=== PATIENT | female | born 1970 | race Caucasian/White ===

== ENCOUNTER 2017-09-13 14:52 | Observation (INO) ==
--- NOTE | 2017-09-13 15:56 | Emergency Department Note ---
Disposition Clinical Impression: RLQ abdominal pain Acute appendicitis Qualifiers: Acute appendicitis type: unspecified acute appendicitis type Qualified Code(s) : K35.80 - Unspecified acute appendicitis Disposition: Admitted As Inpatient Condition: Good Time of Disposition: 16:57 Abdominal Pain HPI - General Chief Complaint: ED Abdominal Pain Stated Complaint: r/o appy, from Time Seen by Provider: 09/13/17 15:56 Source: patient Mode of arrival: ambulatory Limitations: no limitations Nursing Notes Reviewed: Yes Vital Signs Reviewed: Yes - History of Present Illness HPI Narrative: Patient is a 47-year-old female with past medical history of thyroid disease, currently takes Synthroid. She presents today due to right lower quadrant pain. She states that yesterday, she began developing gradual onset right lower quadrant pain, described as a sharp pain with radiation to her right low back. She does admit to a total hysterectomy including bilateral ovaries. She admits to nausea but denies any vomiting, fevers, constipation. She does admit to a couple loose runny stools without any blood. She was seen at an outside urgent care and had a urinalysis performed that she reports was negative. She was referred here from urgent care due to concern for appendicitis. Denies any other chest pain, shortness of breath, dysuria, hematuria, vaginal bleeding or discharge. Pain Scale: 10 - Related Data Home Medications Medication Instructions Recorded Confirmed Hcg 500u Lulu 500 unit PO DAILY 09/13/17 09/13/17 Progesterone,Micronized 400 mg PO HS 09/13/17 09/13/17 [Progesterone] Testosterone 30mg/ Estradiol 0.25 ml TP DAILY 09/13/17 09/13/17 Thyroid,Pork [Thyroid] 90 mg PO DAILY 09/13/17 09/13/17 Allergies Allergy/AdvReac Type Severity Reaction Status Date / Time No Known Allergies Allergy Verified 09/13/17 17:21 Constitutional: Denies: fever Cardiovascular: Denies: chest pain Respiratory: Denies: cough, dyspnea, wheezes Gastrointestinal: Reports: abdominal pain, nausea, diarrhea. Denies: vomiting, constipation, hematemesis, melena, hematochezia Genitourinary: Denies: urgency, dysuria, frequency, hematuria Neurological: Denies: headache, weakness, numbness Abdominal Pain PMH - Past Medical History Medical history: Reports: other Female Surgical History: Reports: hysterectomy Psychiatric history: Reports: no psych history - Social History Smoking status: Never smoker Alcohol use: Reports: none Drug use: Reports: none Physical Exam - General Limitations: no limitations General appearance: alert - Head Head exam: atraumatic, normocephalic, normal inspection - Eye Eye exam: Present: normal appearance, PERRL, EOMI - ENT ENT exam: normal exam, normal oropharynx, mucous membranes moist - Neck Neck exam: Present: normal inspection, full ROM, trachea midline - Chest Chest inspection: Present: normal inspection, symmetric chest wall rise - Respiratory Respiratory exam: Present: normal lung sounds bilaterally - Cardiovascular Cardiovascular exam: Present: regular rate, normal rhythm, normal heart sounds - Abdominal Exam Abdominal exam: Present: soft, tenderness (RLQ near Mcburney's point), other ( negative obturator, psoas, and heel jar signs). Absent: distention, guarding, rebound, rigidity, Encarnacion's sign, Rovsing's sign - Extremities Exam Extremities exam: Present: normal inspection, full ROM. Absent: tenderness, pedal edema - Neurological Exam Neurological exam: Present: alert, oriented X3 - Psychiatric Psychiatric exam: Present: normal affect, normal mood - Skin Skin exam: Present: warm, dry, intact, normal color Course Course Narrative: Patient blood pressure systolic 109. Patient is mentating well at this time. However, will go ahead and give the patient 1 L normal saline bolus. Otherwise , the rest of the vitals within normal limits. Physical exam shows a patient in no acute distress but she did have right lower quadrant pain near McBurney' s. Negative heel jar, negative obturator and psoas sign. Currently concern for possible appendicitis. We will obtain CT of the abdomen and pelvis, we will give the patient fentanyl and Zofran for pain and nausea control. Also obtain LFTs, CBC, BMP, lipase, urinalysis. 16:54 white blood cell count 11.5. CT scan shows acute uncomplicated appendicitis. We will consult surgery, Dr. Scott. 16:56 spoke with , he states he will come to bedside to see the patient. He has also requested that we start 2 g of Mefoxin. This has been ordered. Patient will be admitted to surgery for further care. Abdomen/Pelvis CT 09/13/17 16:05 IMPRESSION: Acute uncomplicated appendicitis D/ / Fidel Shirley MD / Fidel Shirley MD Interpreting Provider: Fidel Shirley MD Vital Signs Temperature 98.3 F 09/13/17 15:25 Pulse Rate 81 09/13/17 15:25 Respiratory Rate 18 09/13/17 15:25 Blood Pressure 109/74 09/13/17 15:25 O2 Sat by Pulse Oximetry 99 09/13/17 15:25 Temperature 98.3 F 09/13/17 15:25 Pulse Rate 81 09/13/17 15:25 Respiratory Rate 18 09/13/17 18:05 Blood Pressure 124/70 09/13/17 18:05 O2 Sat by Pulse Oximetry 99 09/13/17 15:25 Oxygen Delivery Oxygen Delivery Room Air Abdominal Pain - MDM Narrative Medical decision making narrative: Patient blood pressure systolic 109. Patient is mentating well at this time. However, will go ahead and give the patient 1 L normal saline bolus. Otherwise , the rest of the vitals within normal limits. Physical exam shows a patient in no acute distress but she did have right lower quadrant pain near McBurney' s. Negative heel jar, negative obturator and psoas sign. Currently concern for possible appendicitis. We will obtain CT of the abdomen and pelvis, we will give the patient fentanyl and Zofran for pain and nausea control. Also obtain LFTs, CBC, BMP, lipase, urinalysis. 16:54 white blood cell count 11.5. CT scan shows acute uncomplicated appendicitis. We will consult surgery, Dr. Scott. 16:56 spoke with , he states he will come to bedside to see the patient. He has also requested that we start 2 g of Mefoxin. This has been ordered. Patient will be admitted to surgery for further care. - Medical Records Medical records reviewed: Yes I reviewed the patient's medical records. - Lab Data Lab results reviewed: Yes I reviewed the patient's lab results. Result diagrams: 09/13/17 16:30 09/13/17 16:30 Lab Results 09/13/17 09/13/17 09/13/17 Range/Units 16:10 16:30 16:30 WBC 11.5 H (4.3-11.1) K/mcL RBC 4.63 (3.82-4.97) M/mcL Hgb 14.3 (11.5-15.4) g/dL Hct 42.6 (35.3-44.9) % MCV 92.0 (83.0-100.0) fL MCH 30.9 (28.0-33.3) pg MCHC 33.6 (31.6-35.5) g/dL RDW 12.5 (11.5-14.5) % Plt Count 165 (140-400) K/mcL MPV 11.9 (9.4-12.4) fL Immature Gran % 0.3 (0-4) % Seg Neutrophils % 79.5 % Lymphocytes % 12.7 % Monocytes % 6.3 % Eosinophils % 0.9 % Basophils % 0.3 % Neutrophils # 9.1 H (1.6-8.9) K/mcL Lymphocytes # 1.5 (0.6-4.6) K/mcL Monocytes # 0.7 (0.0-1.3) K/mcL Eosinophils # 0.1 (0.0-0.6) K/mcL Basophils # 0.0 (0.0-0.2) K/mcL PT (9.4-12.1) Seconds INR APTT (26.0-36.0) Seconds Sodium 138 (136-145) mEq/L Potassium 4.0 (3.5-5.1) mEq/L Chloride 107 (98-107) mEq/L Carbon Dioxide 26 (23-29) mEq/L BUN 10 (6-20) mg/dL Creatinine 0.71 (0.60-1.20) mg/dL Est GFR ( Amer) > 60 (> 60) Est GFR (Non-Af Amer) > 60 (> 60) BUN/Creatinine Ratio 14 (6-26) Glucose 98 (70-105) mg/dL Calculated Osmolality 285 (280-300) Calcium 9.3 (8.6-10.3) mg/dL Total Bilirubin 0.4 (0.3-1.0) mg/dL Direct Bilirubin 0.1 (0.0-0.2) mg/dL Indirect Bilirubin 0.3 (0.0-1.2) mg/dL AST 15 (13-39) Units/L ALT 16 (7-52) Units/L Alkaline Phosphatase 63 (34-104) Units/L Serum Total Protein 7.3 (6.4-8.9) g/dL Albumin 4.4 (3.5-5.7) g/dL Globulin 2.9 (2.4-3.5) g/dL Albumin/Globulin Ratio 1.5 (1.1-2.2) Lipase 16 (11-82) Units/L Urine Color Yellow (Yellow) Urine Clarity Clear (Clear) Urine pH 6.5 (5.0-8.0) pH Units Ur Specific [place] 1.014 (1.010-1.025) Urine Protein Negative (Neg-Trace) mg/dL Urine Glucose (UA) Normal (Normal) mg/dL Urine Ketones Negative (Negative) mg/dL Urine Blood Negative (Negative) Urine Nitrite Negative (Negative) Urine Bilirubin Negative (Negative) Urine Urobilinogen Normal (Normal) mg/dL Ur Leukocyte Esterase Negative (Negative) Ur Culture Indicated? NO (NO) 09/13/17 Range/Units 16:30 WBC (4.3-11.1) K/mcL RBC (3.82-4.97) M/mcL Hgb (11.5-15.4) g/dL Hct (35.3-44.9) % MCV (83.0-100.0) fL MCH (28.0-33.3) pg MCHC (31.6-35.5) g/dL RDW (11.5-14.5) % Plt Count (140-400) K/mcL MPV (9.4-12.4) fL Immature Gran % (0-4) % Seg Neutrophils % % Lymphocytes % % Monocytes % % Eosinophils % % Basophils % % Neutrophils # (1.6-8.9) K/mcL Lymphocytes # (0.6-4.6) K/mcL Monocytes # (0.0-1.3) K/mcL Eosinophils # (0.0-0.6) K/mcL Basophils # (0.0-0.2) K/mcL PT 12.3 H (9.4-12.1) Seconds INR 1.1 APTT 33.7 (26.0-36.0) Seconds Sodium (136-145) mEq/L Potassium (3.5-5.1) mEq/L Chloride (98-107) mEq/L Carbon Dioxide (23-29) mEq/L BUN (6-20) mg/dL Creatinine (0.60-1.20) mg/dL Est GFR ( Amer) (> 60) Est GFR (Non-Af Amer) (> 60) BUN/Creatinine Ratio (6-26) Glucose (70-105) mg/dL Calculated Osmolality (280-300) Calcium (8.6-10.3) mg/dL Total Bilirubin (0.3-1.0) mg/dL Direct Bilirubin (0.0-0.2) mg/dL Indirect Bilirubin (0.0-1.2) mg/dL AST (13-39) Units/L ALT (7-52) Units/L Alkaline Phosphatase (34-104) Units/L Serum Total Protein (6.4-8.9) g/dL Albumin (3.5-5.7) g/dL Globulin (2.4-3.5) g/dL Albumin/Globulin Ratio (1.1-2.2) Lipase (11-82) Units/L Urine Color (Yellow) Urine Clarity (Clear) Urine pH (5.0-8.0) pH Units Ur Specific [place] (1.010-1.025) Urine Protein (Neg-Trace) mg/dL Urine Glucose (UA) (Normal) mg/dL Urine Ketones (Negative) mg/dL Urine Blood (Negative) Urine Nitrite (Negative) Urine Bilirubin (Negative) Urine Urobilinogen (Normal) mg/dL Ur Leukocyte Esterase (Negative) Ur Culture Indicated? (NO) - Radiology Data Radiology results reviewed: Yes I reviewed the patient's radiology results. Abdomen/Pelvis CT 09/13/17 16:05 IMPRESSION: Acute uncomplicated appendicitis D/ / Fidel Shirley MD / Fidel Shirley MD Interpreting Provider: Fidel Shirley MD S.B.A.R. - S.B.A.R. Situation: Demographics, MOA Background: Presenting Complaint, Relevant PMH, Meds, & Allergies Assessment: Vital Signs, Course and respsone to treatment, Exam Concerns, Patient/Family Expectation, Pertinant Lab Results Recommendation: Barrier(s) to disposition, Recommendation based on pending studies, treatments, or consults S.B.A.R. Report Given to: Dr. Scott
[2017-09-13] MEDS ORDERED: *HR* FentaNYL (PF) 100 MCG/2 ML VIAL IVP ONE (16:06)
[2017-09-13] MEDS ORDERED: Ondansetron 4 MG/2 ML VIAL IVP ONE (16:06)
--- NOTE | 2017-09-13 16:15 | Emergency Department Note ---
Disposition Clinical Impression: Acute appendicitis Disposition: Admitted As Inpatient Condition: Good Referrals: Leticia Herrera MD [Primary Care Provider] - Forms: ED Satisfaction Letter, Work/School Release Time of Disposition: 16:57 General Adult HPI - General Chief complaint: ED Abdominal Pain Stated complaint: r/o appy, from [facility] Time Seen by Provider: 09/13/17 15:56 Source: patient Mode of arrival: ambulatory Limitations: no limitations - History of Present Illness Pain Scale: 10 - Related Data Allergies Allergy/AdvReac Type Severity Reaction Status Date / Time No Known Allergies Allergy Verified 09/13/17 16:51 Constitutional: Denies: fever Cardiovascular: Denies: chest pain Respiratory: Denies: cough, dyspnea, wheezes Gastrointestinal: Reports: abdominal pain, nausea, diarrhea. Denies: vomiting, constipation, hematemesis, melena, hematochezia Genitourinary: Denies: urgency, dysuria, frequency, hematuria Neurological: Denies: headache, weakness, numbness Past Medical History - Past Medical History Medical history: Reports: other Psychiatric history: Reports: no psych history - Social History Smoking Status: Never smoker Smokeless Tobacco Status: Yes Alcohol use: Reports: none Drug use: Reports: none Physical Exam - General Limitations: no limitations General appearance: alert Course Vital Signs Temperature 98.3 F 09/13/17 15:25 Pulse Rate 81 09/13/17 15:25 Respiratory Rate 18 09/13/17 15:25 Blood Pressure 109/74 09/13/17 15:25 O2 Sat by Pulse Oximetry 99 09/13/17 15:25 Temperature 98.3 F 09/13/17 15:25 Pulse Rate 81 09/13/17 15:25 Respiratory Rate 18 09/13/17 15:25 Blood Pressure 109/74 09/13/17 15:25 O2 Sat by Pulse Oximetry 99 09/13/17 15:25 Oxygen Delivery Oxygen Delivery Room Air Medical Decision Making - Lab Data Result diagrams: 09/13/17 16:30 Lab Results 09/13/17 09/13/17 09/13/17 Range/Units 16:10 16:30 16:30 WBC 11.5 H (4.3-11.1) K/mcL RBC 4.63 (3.82-4.97) M/mcL Hgb 14.3 (11.5-15.4) g/dL Hct 42.6 (35.3-44.9) % MCV 92.0 (83.0-100.0) fL MCH 30.9 (28.0-33.3) pg MCHC 33.6 (31.6-35.5) g/dL RDW 12.5 (11.5-14.5) % Plt Count 165 (140-400) K/mcL MPV 11.9 (9.4-12.4) fL Immature Gran % 0.3 (0-4) % Seg Neutrophils % 79.5 % Lymphocytes % 12.7 % Monocytes % 6.3 % Eosinophils % 0.9 % Basophils % 0.3 % Neutrophils # 9.1 H (1.6-8.9) K/mcL Lymphocytes # 1.5 (0.6-4.6) K/mcL Monocytes # 0.7 (0.0-1.3) K/mcL Eosinophils # 0.1 (0.0-0.6) K/mcL Basophils # 0.0 (0.0-0.2) K/mcL PT 12.3 H (9.4-12.1) Seconds INR 1.1 APTT 33.7 (26.0-36.0) Seconds Urine Color Yellow (Yellow) Urine Clarity Clear (Clear) Urine pH 6.5 (5.0-8.0) pH Units Ur Specific [place] 1.014 (1.010-1.025) Urine Protein Negative (Neg-Trace) mg/dL Urine Glucose (UA) Normal (Normal) mg/dL Urine Ketones Negative (Negative) mg/dL Urine Blood Negative (Negative) Urine Nitrite Negative (Negative) Urine Bilirubin Negative (Negative) Urine Urobilinogen Normal (Normal) mg/dL Ur Leukocyte Esterase Negative (Negative) Ur Culture Indicated? NO (NO) Attestation Statement - Attestation Attestation: I examined this patient and my medical decision-making was reviewed with the Resident Physician. I agree with the documented findings, disposition and treatment plan as described except to the extent set forth below. Patient to the ED with right lower quadrant abdominal pain. Onset yesterday. History of ANGELI with BSO. On exam she is very tender in the right lower quadrant. Plan. Labs and CT abdomen and pelvis. CT abdomen and pelvis shows an acute uncomplicated appendicitis. Surgery has been consulted.
[2017-09-13 16:24] LABS: Bilirubin,Urine Negative (Negative); Blood,Urine Negative (Negative); Clarity,Urine Clear (Clear); Color,Urine Yellow (Yellow); Glucose,Urine (UA) Normal (Normal); Ketones,Urine Negative (Negative); Leukocyte Esterase,Urine Negative (Negative); Nitrite,Urine Negative (Negative); PH,Urine 6.5 pH Units (5.0-8.0); Protein,Urine Negative (Neg-Trace); Specific Gravity,Urine 1.014 (1.010-1.025); Urobilinogen,Urine Normal (Normal)
[2017-09-13 16:43] LABS: Basophils % 0.3 %; Eosinophils # 0.1 K/mcL (0.0-0.6); Eosinophils % 0.9 %; Hematocrit 42.6 % (35.3-44.9); Hemoglobin 14.3 g/dL (11.5-15.4); Immature Granulocytes % 0.3 % (0-4); Lymphocytes # 1.5 K/mcL (0.6-4.6); Lymphocytes % 12.7 %; Mean Corpuscular HGB Conc 33.6 g/dL (31.6-35.5); Mean Corpuscular Hemoglobin 30.9 pg (28.0-33.3); Mean Platelet Volume 11.9 fL (9.4-12.4); Monocytes # 0.7 K/mcL (0.0-1.3); Monocytes % 6.3 %; Neutrophils # 9.1 K/mcL (1.6-8.9); Platelet Count 165 K/mcL (140-400); Red Blood Count 4.63 M/mcL (3.82-4.97); Red Cell Distribution Width 12.5 % (11.5-14.5); Segmented Neutrophils % 79.5 %
[2017-09-13 16:48] LABS: INR 1.1; Prothrombin Time 12.3 Seconds (9.4-12.1)
[2017-09-13 16:50] LABS: Activated Partial Thrombo Time 33.7 Seconds (26.0-36.0)
[2017-09-13] MEDS ORDERED: cefOXitin 2,000 MG in Water for inj. (sterile) 20 ML 20 ML IVP ONE (16:56)
[2017-09-13 17:06] LABS: Alanine Aminotransferase 16 Units/L (7-52); Albumin 4.4 g/dL (3.5-5.7); Albumin/Globulin Ratio 1.5 (1.1-2.2); Alkaline Phosphatase 63 Units/L (34-104); Aspartate Amino Transferase 15 Units/L (13-39); BUN/Creatinine Ratio 14 (6-26); Bilirubin,Direct 0.1 mg/dL (0.0-0.2); Bilirubin,Indirect 0.3 mg/dL (0.0-1.2); Bilirubin,Total 0.4 mg/dL (0.3-1.0); Blood Urea Nitrogen 10 mg/dL (6-20); Calcium 9.3 mg/dL (8.6-10.3); Carbon Dioxide 26 mEq/L (23-29); Chloride 107 mEq/L (98-107); Globulin 2.9 g/dL (2.4-3.5); Glucose 98 mg/dL (70-105); Lipase 16 Units/L (11-82); Osmolality,Calculated 285 (280-300); Sodium 138 mEq/L (136-145); Total Protein 7.3 g/dL (6.4-8.9); eGFR For African Americans > 60 (> 60); eGFR For Non-African Americans > 60 (> 60)
--- NOTE | 2017-09-13 17:45 | Anesthesia Evaluation PreOp ---
Date of Encounter: 09/13/17 Time of Encounter: 17:43 - Past History Planned Operation: Lap. Appy Cardiac History: Denies any Significant Hx Pulmonary History: Denies Any Significant HX DIET TECHNICIAN REGISTERED History: Denies Any Significant HX Other Medical History: Thyroid (Hypothyroid) Anesthesia History: No Prior Anesthetic Complications, Past Anesthesia (ANGELI) : No (ANGELI) Alcohol Use: none Drug use: none Medications and Allergies Hcg 500u Lulu 500 unit PO DAILY 09/13/17 [History] Progesterone,Micronized [Progesterone] 400 mg PO HS 09/13/17 [History] Testosterone 30mg/ Estradiol 0.25 ml TP DAILY 09/13/17 [History] Thyroid,Pork [Thyroid] 90 mg PO DAILY 09/13/17 [History] 3 Allergy/AdvReac Type Severity Reaction Status Date / Time No Known Allergies Allergy Verified 09/13/17 17:21 - Meds/Allergy Pre-op Review Medications Reviewed: Yes Allergies Reviewed: Yes Beta Blockers on Current Med List: No Anesthesia Results - Labs 09/13/17 16:30 09/13/17 16:30 Anesthesia Exam O2 Sat Height 1.68 m Weight 72.121 kg O2 Sat by Pulse Oximetry 99 Vital Signs Temp Pulse Resp BP Pulse Ox 98.3 F 81 18 109/74 99 09/13/17 15:25 09/13/17 15:25 09/13/17 15:25 09/13/17 15:25 09/13/17 15:25 NPO (# of Hours): > 8 Hrs Pain Scale: 0 Pain Scale Used: Numeric (1 - 10) - HEENT Pupil (Motor): Pupils equal, EOMI Mallampati: I Teeth: Normal Oral Opening: Greater than 3 - DIET TECHNICIAN REGISTERED LOC: Oriented DIET TECHNICIAN REGISTERED Motor: Normal RUE, Normal LUE, Normal RLE, Normal LLE, Normal Face DIET TECHNICIAN REGISTERED Sensory: Normal: RUE, LUE, RLE, LLE, Face - Cardiac Rhythm: Regular Murmur: None JVD: No Carotid Bruit: No - Pulmonary Breath Sounds: bilateral Clear Respiratory Effort: Symmetrical Anesthesia Assess/Plan ASA Score: 1 Modified Genie Scale for Level of Consciousness: Cooperative, oriented, and tranquil Anesthetic Plan: General Autologous Blood: Yes Monitoring Plan: Standard Monitors Recovery Plan: PACU
[2017-09-13] MEDS ORDERED: *HR* FentaNYL (PF) 100 MCG/2 ML VIAL ONE ×2 (17:58→19:18)
[2017-09-13] MEDS ORDERED: Lidocaine -MPF 4% 5 ML AMPUL ONE (17:58)
[2017-09-13] MEDS ORDERED: Lidocaine -MPF 2% 2 ML VIAL ONE (17:58)
[2017-09-13] MEDS ORDERED: *HR* Propofol 200 MG/20 ML VIAL IVP ONE (17:58)
[2017-09-13] MEDS ORDERED: *HR* Succinylcholine 200 MG/10 ML VIAL IVP ONE (17:59)
[2017-09-13] MEDS ORDERED: Dexamethasone 4 MG/ML VIAL ONE (17:59)
[2017-09-13] MEDS ORDERED: *HR* Rocuronium Bromide 50 MG/5 ML VIAL ONE (17:59)
[2017-09-13] MEDS ORDERED: Neostigmine Methylsulfate 3 MG/3 ML SYRINGE ONE (17:59)
[2017-09-13] MEDS ORDERED: Ondansetron 4 MG/2 ML VIAL ONE (17:59)
[2017-09-13] MEDS ORDERED: CefOXitin 2,000 MG VIAL ONE (18:01)
--- NOTE | 2017-09-13 18:03 | General Surg History&Physical ---
<Lukas Reina - Last Filed: 09/13/17 18:08> Date of Encounter: 09/13/17 Time of Encounter: 17:59 Assessment and Plan (1) Acute appendicitis Current Visit: Yes Status: Acute No evidence of rupture complicating acute appendicitis. Plan is to go to the OR this evening for laparoscopic appendectomy. Other orders to follow. Qualifiers: Acute appendicitis type: unspecified acute appendicitis type Qualified Code (s): K35.80 - Unspecified acute appendicitis History of Present Illness Chief complaint: RLQ pain HPI: Ms. Manjarrez is a 47 year old female who presented to the ED for right lower quadrant abdominal pain that is been going on since yesterday morning. Patient states gradually onset after waking up with no specific provoking factors. As noted no palliative factors. Pain has been constant, difficult for patient to characterize, gradually increasing in severity, and later associated with a diffuse pain distribution. Focal pain has been non-migratory and non-radiating. Has had some associated nausea, but no vomiting. Also has had some diarrhea with no signs of melena or blood in stool. Denies fevers, chills, sweats, chest pain, palpitations, shortness of breath, dysuria, hematuria, abnormal discharge , or constipation. Afebrile; other vitals normal and stable. Mild leukocytosis in the ED; other lab values within normal limits. CT done in emergency department read as uncomplicated acute appendicitis. Past Med Surg Social Fam HX - Past Medical History Source: patient Medical history: non-contributory, other Psychiatric history: no psych history - Past Surgical History Surgical History: hysterectomy - Social History Smoking Status: Never smoker Smokeless Tobacco Status: Yes Alcohol use: none Drug use: none Medications and Allergies Hcg 500u Lulu 500 unit PO DAILY 09/13/17 [History] Progesterone,Micronized [Progesterone] 400 mg PO HS 09/13/17 [History] Testosterone 30mg/ Estradiol 0.25 ml TP DAILY 09/13/17 [History] Thyroid,Pork [Thyroid] 90 mg PO DAILY 09/13/17 [History] 3 Allergy/AdvReac Type Severity Reaction Status Date / Time No Known Allergies Allergy Verified 09/13/17 17:21 Review of Systems All systems PM: The remainder of the systems were reviewed and are negative - Constitutional as per HPI General Surgery Exam Initial Vital Signs Temp Pulse Resp BP Pulse Ox 98.3 F 81 18 109/74 99 09/13/17 15:25 09/13/17 15:25 09/13/17 15:25 09/13/17 15:25 09/13/17 15:25 VITAL SIGNS: Reviewed. See [facility] GENERAL: alert and comfortable. No acute distress. Answers questions appropriately. HEENT: PER, EOMi, oropharynx pink/moist CV: RRR, no murmurs or extra heart sounds RESPIRATORY: CTAB without wheezes, rales, or rhonchi ABD: grossly normal appearance, normoactive, soft, exquisite tenderness to RLQ with guarding, no rigidity/distention/rebound, negative heel jar EXTREMITY: grossly normal motor function, no pedal edema, radial pulse 2+ b/l NEUROLOGIC EXAM: AOx3, obeys commands, no speech deficits. PSYCHIATRIC: normal mood and affect SKIN: no gross lesions, rashes, or skin changes Results - Labs 09/13/17 16:30 09/13/17 16:30 Abnormal lab results WBC 11.5 K/mcL (4.3-11.1) H 09/13/17 16:30 Neutrophils # 9.1 K/mcL (1.6-8.9) H 09/13/17 16:30 PT 12.3 Seconds (9.4-12.1) H 09/13/17 16:30 Diabetes panel 09/13/17 Range/Units 16:30 Sodium 138 (136-145) mEq/L Potassium 4.0 (3.5-5.1) mEq/L Chloride 107 (98-107) mEq/L Carbon Dioxide 26 (23-29) mEq/L BUN 10 (6-20) mg/dL Creatinine 0.71 (0.60-1.20) mg/dL Glucose 98 (70-105) mg/dL Calcium 9.3 (8.6-10.3) mg/dL AST 15 (13-39) Units/L ALT 16 (7-52) Units/L Alkaline Phosphatase 63 (34-104) Units/L Albumin 4.4 (3.5-5.7) g/dL Calcium panel 09/13/17 Range/Units 16:30 Calcium 9.3 (8.6-10.3) mg/dL Albumin 4.4 (3.5-5.7) g/dL Pituitary panel 09/13/17 Range/Units 16:30 Sodium 138 (136-145) mEq/L Potassium 4.0 (3.5-5.1) mEq/L Chloride 107 (98-107) mEq/L Carbon Dioxide 26 (23-29) mEq/L BUN 10 (6-20) mg/dL Creatinine 0.71 (0.60-1.20) mg/dL Glucose 98 (70-105) mg/dL Calcium 9.3 (8.6-10.3) mg/dL Adrenal panel 09/13/17 Range/Units 16:30 Sodium 138 (136-145) mEq/L Potassium 4.0 (3.5-5.1) mEq/L Chloride 107 (98-107) mEq/L Carbon Dioxide 26 (23-29) mEq/L BUN 10 (6-20) mg/dL Creatinine 0.71 (0.60-1.20) mg/dL Glucose 98 (70-105) mg/dL Calcium 9.3 (8.6-10.3) mg/dL Total Bilirubin 0.4 (0.3-1.0) mg/dL AST 15 (13-39) Units/L ALT 16 (7-52) Units/L Alkaline Phosphatase 63 (34-104) Units/L Albumin 4.4 (3.5-5.7) g/dL All other labs normal. <Eduardo Scott - Last Filed: 09/13/17 18:28> Date of Encounter: 09/13/17 History of Present Illness HPI: Ms. Manjarrez is a 47 year old female Review of Systems All systems PM: The remainder of the systems were reviewed and are negative General Surgery Exam Initial Vital Signs Temp Pulse Resp BP Pulse Ox 98.3 F 81 18 109/74 99 09/13/17 15:25 09/13/17 15:25 09/13/17 15:25 09/13/17 15:25 09/13/17 15:25 Results - Labs 09/13/17 16:30 09/13/17 16:30 Abnormal lab results WBC 11.5 K/mcL (4.3-11.1) H 09/13/17 16:30 Neutrophils # 9.1 K/mcL (1.6-8.9) H 09/13/17 16:30 PT 12.3 Seconds (9.4-12.1) H 09/13/17 16:30 All other labs normal. - Attending Attestation I examined this patient and my medical decision-making was reviewed with the Resident Physician. I agree with the documented findings, disposition and treatment plan as described except to the extent set forth below. The patient is seen and evaluated with the resident in the emergency department. She has had 2 days of right lower quadrant abdominal pain and now presents with persistent right lower quadrant abdominal pain suggestive of appendicitis. Review of the CAT scan images demonstrates periappendiceal inflammation and acute appendicitis. There is no discrete abscess. The patient is quite symptomatic. Urgent laparoscopic appendectomy is indicated. I discussed the risks and benefits of surgery with the patient she understands and wishes to proceed. Eduardo Scott MD FACS
[2017-09-13] MEDS ORDERED: *HR* PHENYLEPHRINE 1,000 MCG/10 ML SYRINGE IVP ONE (18:52)
[2017-09-13] MEDS ORDERED: *HR* HYDROmorphone (PF) 1 MG/ML SYRINGE IVP PRN (19:29)
--- NOTE | 2017-09-13 19:42 | Operative Note ---
Date of procedure: 09/13/17 Pre-op diagnosis: Acute appendicitis Post-op diagnosis: same Procedure: Laparoscopic appendectomy Anesthesia: JUAN Surgeon: Eduardo Scott Was there an customer relations assistant present: No Estimated blood loss (cc): 25 Specimen: Appendix Condition: stable Disposition: PACU Procedure in Detail: After informed consent the patient is taken to major operative suite placed in the supine position given adequate general anesthetic. The abdomen is prepped and draped in sterile fashion utilizing ChloraPrep and standard draping techniques. Timeout was taken. The patient is identified. I made a vertical midline incision below the umbilicus and dissected down the level of fascia area 2 traction stitches were placed. A Pearson trocar was passed into the abdomen. The abdomen was insufflated to 15 mmHg pressure CO2. I placed a 5 mm port and suprapubic area 12 mm port in the right upper quadrant. The inflammatory process was intense in the right lower quadrant with visible pus. The appendix was not immediately visible. I placed a 30 degree scope. I performed a lateral mobilization of the entire cecum by dividing the peritoneum. Once this was done I was able to identify the Darrel of the cecum and the junction to the appendix. The appendix was acutely inflamed and covered in pus. I divided the base of the appendix using an Ethicon stapler. The staple line was in good condition. I divided the mesial appendix. The vascular staple line failed to secure the arterial inflow. Additional 10 mm clips were necessary did secure the staple line for hemostasis. I removed the appendix through the umbilical port using a specimen bag area I irrigated the abdomen and pelvis with copious amounts of antibiotic containing solution. There is no evidence of bleeding. All the staple lines were intact. All trochars were removed. The fascia was closed with 0 Vicryl. The skin was closed with 2-0 Vicryl and 4-0 Vicryl. The patient tolerated procedure well.
[2017-09-13] MEDS ORDERED: 0.9 % Sodium Chloride 1,000 ML IVC SCH (20:48)
[2017-09-13] MEDS ORDERED: OXYCODONE Oral CONC 10 MG/0.5 ML ORAL.SYG SL PRN (20:48)
[2017-09-13] MEDS ORDERED: Ondansetron 4 MG/2 ML VIAL IVP PRN (20:48)
--- NOTE | 2017-09-13 21:55 | Anesthesia Evaluation Post Op ---
Date of Encounter: 09/13/17 Time of Encounter: 20:25 - Vital Signs Vital Signs: Last Vital Signs Temp 98.4 F 09/13/17 21:38 Pulse 76 09/13/17 21:38 Resp 16 09/13/17 21:38 BP 121/74 09/13/17 21:38 Pulse Ox 92 09/13/17 21:38 - Lungs Lungs: Clear Ascult./Percussion - Airway Airway: Non-obstructed - Cardiovascular Regular Rate - Mental Status Mental Status: Alert & Oriented, Answers Appropriately - Pain Pain Scale: 5 - Nausea Vomiting Nausea Vomiting: Not Present - Hydration Hydration: Ice chips - Discharge PostOp Status: Transfer Patient to floor
[2017-09-13] MEDS: cefOXitin 2,000 MG in Water for inj. (sterile) 20 ML 20 ML IVP SCH (23:52)
[2017-09-13] MEDS: *HR* OxyCODONE/APAP 5/325 TABLET PO PRN (23:53)
[2017-09-14] MEDS: *HR* OxyCODONE/APAP 5/325 TABLET PO PRN (08:46)
[2017-09-14] MEDS: cefOXitin 2,000 MG in Water for inj. (sterile) 20 ML 20 ML IVP SCH (08:47)
--- NOTE | 2017-09-14 09:27 | Discharge Summary ---
<Lukas Reina - Last Filed: 09/14/17 09:23> Orders not resulted at time of discharge: Pending orders 09/13/17 19:19 Surgical Pathology [PTH] Routine Date of Encounter: 09/14/17 Time of Encounter: 07:00 - Discharge Diagnosis (1) Acute appendicitis Priority: Primary Status: Acute Comments: Successful laparoscopic appendectomy on 09/13/2017. Uncomplicated and without rupture. Significant inflammation visualized laparoscopically. Patient afebrile overnight without recurrence of abdominal symptoms. Pain well- controlled. Discharged with pain meds and antibiotics. Qualifiers: Acute appendicitis type: with localized peritonitis Qualified Code(s): K35.3 - Acute appendicitis with localized peritonitis General Surgery Exam Initial Vital Signs Temp Pulse Resp BP Pulse Ox 98.3 F 81 18 109/74 99 09/13/17 15:25 09/13/17 15:25 09/13/17 15:25 09/13/17 15:25 09/13/17 15:25 VITAL SIGNS: Reviewed. See [facility] GENERAL: no acute distress, icepack over suprapubic/right trocar incision sites , alert, answers questions appropriately HEENT: PER, EOMi, oropharynx pink/moist CV: RRR, no murmurs or gallops, no JVD RESPIRATORY: CTAB without wheezes, rales, or rhonchi ABD: normoactive, soft, expected postop tenderness, no RLQ tenderness, no distention/rigidity, no peritoneal signs INCISION: trocar sites clean, dry, intact without purulence/bleeding/edema/rubor /calor EXTREMITY: grossly normal motor function, no pedal edema, peripheral pulses 2+ b /l NEUROLOGIC EXAM: AOx3, obeys commands, no speech deficits. PSYCHIATRIC: normal mood and affect SKIN: no gross lesions, rashes, or skin changes - Hospital Course Hospital course: Ms. Manjarrez is a 47 year old female admitted to gen surg service for acute uncomplicated appendicitis. Patient presented to the ED yesterday afternoon for right lower quadrant abdominal pain that had been going on since 09/12/2017 at about 0600. Prior to arrival, she began to develop diffuse abdominal discomfort with worsening focal right lower quadrant pain. Patient had concurrent subjective fever (felt warm ), vague nausea without vomiting, and diarrhea. In the emergency department, had mildly elevated white count and CT imaging which was supportive of the diagnosis of acute uncomplicated appendicitis. Exam consistent with radiologic findings. Surgery was recommended for laparoscopic appendectomy; patient was in agreement and was taken to the OR with successful completion of aforementioned procedure. Patient observed overnight. Regular diet advanced in the morning without any difficulty or provocation of abdominal symptoms. She is afebrile overnight, presenting pain has abated, and post op pain has been well-controlled. Given significant inflammation on laparoscopic view, discharging patient with PO antibiotics (Cipro/Flagyl) for seven-day course as well as appropriate post- op pain medication. Should follow up with surgery on outpatient basis in about 2 weeks. Aftercare instructions and return precautions provided to patient in verbal and written form; patient had an opportunity to ask questions and she expresses understanding. - Time Spent with Patient Total time spent providing and/or coordinating discharge services: - Discharge Medications Prescriptions: OxyCODONE/APAP 5/325 [Percocet 5/325 MG] 1 each PO Q6HR PRN 7 Days #28 tablet PRN Reason: Severe Pain Ciprofloxacin [Cipro] 500 mg PO BID 7 Days #14 tablet Docusate [Colace] 100 mg PO BID #30 capsule Ibuprofen 800 mg PO Q8H #45 tablet metroNIDAZOLE [Flagyl] 500 mg PO TID 7 Days #21 tablet Ondansetron ODT [Zofran ODT] 4 mg PO Q6H PRN #16 tab.rapdis PRN Reason: Nausea And Vomiting Home Medications: Hcg 500u Lulu 500 unit PO DAILY 09/13/17 [History] Progesterone,Micronized [Progesterone] 400 mg PO HS 09/13/17 [History] Testosterone 30mg/ Estradiol 0.25 ml TP DAILY 09/13/17 [History] Thyroid,Pork [Thyroid] 90 mg PO DAILY 09/13/17 [History] Ciprofloxacin [Cipro] 500 mg PO BID 7 Days #14 tablet 09/14/17 [Rx] Docusate [Colace] 100 mg PO BID #30 capsule 09/14/17 [Rx] Ibuprofen 800 mg PO Q8H #45 tablet 09/14/17 [Rx] Ondansetron ODT [Zofran ODT] 4 mg PO Q6H PRN #16 tab.rapdis 09/14/17 [Rx] OxyCODONE/APAP 5/325 [Percocet 5/325 MG] 1 each PO Q6HR PRN 7 Days #28 tablet 05 /25/18 [Rx] metroNIDAZOLE [Flagyl] 500 mg PO TID 7 Days #21 tablet 09/14/17 [Rx] Allergies/Adverse Reactions: 3 Allergy/AdvReac Type Severity Reaction Status Date / Time No Known Allergies Allergy Verified 09/13/17 17:21 Date of admission: 09/13/17 18:05 Primary care physician: Leticia Herrera, Discharging clinician: Lukas Reina Anticipated date of discharge: 09/14/17 - Patient Status Disposition: Home, Self-Care Condition: Good Functional capacity at discharge: independent ambulation Overall status at discharge: patient is progressing back to baseline - Discharge Instructions Instructions: Appendicitis (DC), Laparoscopic Appendectomy (DC) Follow Up With: Surgery [facility] [Provider Group] - 10/02/17 2:30 pm (Appt. made with [facility]) Leticia Herrera MD [Primary Care Provider] - Forms: Work/School Release Additional Instructions: Please review all discharge educational handouts. Please attend scheduled follow-up appointment; appointment date and time will be provided for you. You are prescribed medication for pain, nausea, and constipation (to be used if/ as needed); take as written. Ibuprofen for mild pain, Oxycodone for severe pain. Do not let pain become severe before opting to take medication. Avoid driving if your pain requires that you take oxycodone. You will be given prescriptions for antibiotics (Ciprofloxacin and Flagyl); please take these to completion. Call Dr. Scott's office if you have fever/chills/sweats/body aches, nausea, vomiting, constipation not relieved with meds you have been prescribed, significant abdominal pain after eating, blood in your stools or blackened stools, or signs of infection at your incision sites (includes increasing redness, increasing warmth, swelling, or pus). Wound Care: may shower; allow water to passively run over surgical sites, avoid firm scrubbing of incision sites. May leave incisions open to air or cover with a dry dressing for comfort. Do not forcibly remove the derma-alexander (glue) overlying your incisions. Call your PCP for other concerns if any arise. - Diet and Activity Activity: increase activity as tolerated Diet: advance to your usual diet <Eduardo Scott - Last Filed: 09/14/17 14:58> Orders not resulted at time of discharge: Pending orders 09/13/17 19:19 Surgical Pathology [PTH] Routine Date of Encounter: 09/14/17 General Surgery Exam Initial Vital Signs Temp Pulse Resp BP Pulse Ox 98.3 F 81 18 109/74 99 09/13/17 15:25 09/13/17 15:25 09/13/17 15:25 09/13/17 15:25 09/13/17 15:25 - Hospital Course Hospital course: Ms. Manjarrez is a 47 year old female - Time Spent with Patient Total time spent providing and/or coordinating discharge services: Date of admission: 09/13/17 18:05 Primary care physician: Leticia Herrera, - Attending Attestation I examined this patient and my medical decision-making was reviewed with the Resident Physician. I agree with the documented findings, disposition and treatment plan as described except to the extent set forth below. The patient is seen and evaluated on morning rounds with resident. She is ready for discharge. I have recommended Cipro Floxin and Flagyl for oral antibiotics. Eduardo Scott MD FACS
[2017-09-14 10:27] VITALS: BP 109/62
== END 2017-09-14 13:25 | disposition home or self-care (01) ==
LOC: EMEROO 14:52 → 3ANU 14:52
PROVIDERS: ADMIT Surgery; ATTEND Surgery